=== PATIENT | male | born 1950 | race Caucasian/White ===

== ENCOUNTER 2021-05-05 13:07 | Emergency (ER) | payer MEDICARE, MEDICAID ==
[~2021-05-05] VITALS: Ht 170.2 cm; Wt 97.5 kg
[~2021-05-05 13:07] MED LIST: ACETAMINOPHEN325 M1 PO; ASPIRIN325 PO; FLAGYL500 MG PO; LOPRESSOR25 PO; NASONEX17 GM NS; NEXIUM40 MG; OMEPRAZOLE20 MG PO; PROTONIX40 MG PO; VICODIN; VICODIN ES TAB1 EACH; VITAMIN D400 UNI1
[2021-05-05 14:17] LABS: CALCIUM 8.7 mg/dL (8.5-10.1); CREATININE 1.1 mg/dL (0.6-1.3); POTASSIUM 3.9 mmol/L (3.5-5.1)
[2021-05-05 14:23] LABS: ABSOLUTE LYMPHOCYTES 0.8 thou/uL (0.8-5.3); ABSOLUTE MONOCYTES 0.7 thou/uL (0.0-1.2); ABSOLUTE NEUTROPHILS 9.3 thou/uL (1.6-8.1); BASOPHILS 0.2 %; EOSINOPHILS 0.4 %; HEMATOCRIT 41.6 % (42.0-52.0); HEMOGLOBIN 14.4 gm/dL (14.0-18.0); LYMPHOCYTES 7.7 %; MCH 29.6 pg (26.0-34.0); MCHC 34.6 g/dL (28.0-37.0); MCV 85.6 fL (80.0-100.0); MONOCYTES 6.8 %; MPV 7.3 fl. (7.2-11.1); NUCLEATED RBCS 0 /100WBC; PLATELET COUNT* 313 thou/uL (150-400); POLYS 84.9 %; RBC 4.86 mil/uL (4.50-6.00); RDW-CV 14.4 % (10.5-14.5)
[2021-05-05 14:27] LABS: ALBUMIN 3.5 g/dL (3.4-5.0); TOTAL BILIRUBIN 0.5 mg/dL (<0.1-1.0); TOTAL PROTEIN 7.5 g/dL (6.4-8.2)
[2021-05-05 14:30] LABS: ALCOHOL < 10 mg/dL (<10); SALICYLATE < 2.8 mg/dL (2.8-20.0)
[2021-05-05 14:31] LABS: ACETAMINOPHEN < 2 ug/mL (10-30)
[2021-05-05 15:24] LABS: URINE BILIRUBIN NEGATIVE (Negative); URINE BLOOD NEGATIVE (Negative); URINE CLARITY CLEAR; URINE COLOR YELLOW; URINE GLUCOSE-RANDOM NEGATIVE (Negative); URINE KETONES NEGATIVE (Negative); URINE LEUKOCYTES-REFLEX NEGATIVE (Negative); URINE NITRITE-REFLEX NEGATIVE (Negative); URINE PROTEIN NEGATIVE (Negative); URINE SPECIFIC GRAVITY <= 1.005 (1.005-1.030); URINE UROBILINOGEN 0.2 E.U./dl (0.2-1.0)
[2021-05-05 15:31] LABS: AMP/METHAMP Negative (Negative); BARBITURATES Negative (Negative); BENZODIAZEPINES Negative (Negative); COCAINE Negative (Negative); METHADONE Negative (Negative); OPIATES Negative (Negative); PCP Negative (Negative); THC Negative (Negative)
--- NOTE | 2021-05-05 15:36 | EKG ---
[place] [address] ELECTROCARDIOGRAM REPORT Name: GRACETABBY A Room: [facility]#: [id number] Admission: 05/05/21 Attend Phys: Discharge: Date of : 52 Date of Service: 05/05/21 1355 Report #: [id number] THIS REPORT FOR: //name// [facility] ED Test Date: 2021-05-05 Test Time: 13:55:47 Pat Name: TABBY EDWARDS Department: Room: Gender: Optimization Analyst: : 1950 Requested By: Bienvenido Bryson Order Number: [id number] MD: Montez Colvin Measurements Intervals Jachin Rate: 94 P: 25 MS: 156 QRS: -16 QRSD: 93 T: 5 QT: 358 QTc: 448 Interpretive Statements Sinus rhythm Abnormal R-wave progression, late transition Inferior infarct, old cannot be excluded Compared to ECG 02/01/2013 17:09:56 Inferior scar cannot be excluded Sinus bradycardia no longer present Electronically Signed On 05-05-2021 15:36:48 CDT by Montez Colvin [email or web address] <ELECTRONICALLY SIGNED> By: Montez Colvin MD, [facility] 05/05/21 1536 1355 1355 Montez Colvin MD, [facility] /EPI
[2021-05-05 16:00] VITALS: BP 115/73
== END 2021-05-05 16:00 | disposition home or self-care (01) ==
LOC: M.ERS 13:07
PROVIDERS: Emergency Medicine Emergency Medical Services
DX: T67.9XXA Effect of heat and light, unspecified, initial encounter (principal); Z20.822 Contact with and (suspected) exposure to COVID-19; K21.9 Gastro-esophageal reflux disease without esophagitis; Z87.891 Personal history of nicotine dependence; Z98.890 Other specified postprocedural states; Y92.89 Other specified places as the place of occurrence of the external cause